=== PATIENT | male | born 1930 | race Caucasian/White ===

== ENCOUNTER 2019-04-15 13:29 | Emergency (ER) | payer OTHER ==
[~2019-04-15] VITALS: Ht 172.7 cm; Wt 68.2 kg
[~2019-04-15 13:29] MED LIST: AMOX1TAB64 PO; APIX2.5T PO; DILT180C72 PO; FAMO40TA4 PO; INSU100V8 SQ; METF500T17 PO; MIRT-34 PO; ROSU10TA2 PO; SITA25TA PO
[2019-04-15 14:23] LABS: BASOPHILS # (AUTO) 0.03 x10^3/uL (0-0.1); BASOPHILS % (AUTO) 0 % (0-1); EOSINOPHILS # (AUTO) 0.19 x10^3/uL (0-0.4); EOSINOPHILS % (AUTO) 2 % (1-7); LYMPHOCYTES # (AUTO) 1.32 x10^3/uL (1-3.4); LYMPHOCYTES % (AUTO) 15 % (22-44); MD NO; MEAN CORPUSCULAR VOLUME 93.6 fL (81-97); MEAN PLATELET VOLUME 7.1 fL (7.4-10.4); MONOCYTES # (AUTO) 0.99 x10^3/uL (0.2-0.8); MONOCYTES % (AUTO) 11 % (2-9); NEUTROPHILS # (AUTO) 6.39 x10^3/uL (1.8-6.8); NEUTROPHILS % (AUTO) 72 % (42-75); PLATELET COUNT 310 x10^3/uL (130-400); RED BLOOD COUNT 4.15 x10^6/uL (4.38-5.82); RED CELL DISTRIBUTION WIDTH 14.7 % (9.4-14.8)
[2019-04-15 14:31] LABS: ALANINE AMINOTRANSFERASE 32 U/L (12-78); ALBUMIN 3.3 g/dL (3.4-5.0); ANION GAP 5 mmol/L (5-15); CALCIUM 8.6 mg/dL (8.5-10.1); CHLORIDE 99 mmol/L (98-107); CREATININE 1.04 mg/dL (0.7-1.3)
[2019-04-15 14:33] LABS: ALKALINE PHOSPHATASE 77 U/L (45-117); BILIRUBIN,TOTAL 0.5 mg/dL (0.2-1.0); TOTAL PROTEIN 6.6 g/dL (6.4-8.2)
[2019-04-15 14:58] LABS: MICROSCOPIC INDICATED
[2019-04-15 15:02] LABS: CULTURE INDICATED? YES
--- NOTE | 2019-04-15 16:13 | NUR ---
LATE NOTE ENTRY DUE TO PT CARE. Second enema provided to pt with relief of constipation with large amount of hard stools. Pt states relief. NADN. No other needs expressed. Pt continues to rest on gurney connected to NIBP cuff and continous pulse ox monitor. Bedrails up x 2, call light within reach.
--- NOTE | 2019-04-15 16:47 | NUR ---
Called [facility] of the [facility] at [phone] to provide RN to RN report for pt to transfer back. RN unavailable at time of call and ED phone number was left in message for a call back.
[2019-04-15 17:05] VITALS: BP 134/87
--- NOTE | 2019-04-15 17:06 | NUR ---
DC pending medical transport home. Pt dressed in personal clothing sitting on gurney. Call light within reach. Bedrails up x 2. NADN. No needs expressed.
--- NOTE | 2019-04-15 17:32 | NUR ---
THROUGHPUT: ATTEMPTED TO REACH [facility], THEY ARE CLOSED. [facility] TO TRANSPORT PATIENT BACK TO [facility] AT 1815.
--- NOTE | 2019-04-15 18:08 | NUR ---
Provided RN to RN report to FLORES Lynne at [facility]. All questions answered. Pt ready to transport from ED to home by [facility] at 1815.
--- NOTE | 2019-04-15 18:46 | NUR ---
Pt transported by [facility] back home. Pt d/c with all personal belongings, prescription, and d/c paperwork. NADN. No needs expressed.
== END 2019-04-15 18:48 | disposition home or self-care (01) ==
LOC: ED 17:58
DX: K56.41 Fecal impaction (principal); N30.01 Acute cystitis with hematuria; Z86.73 Personal history of transient ischemic attack (TIA), and cerebral infarction without residual deficits; E11.9 Type 2 diabetes mellitus without complications; I25.10 Atherosclerotic heart disease of native coronary artery without angina pectoris
CPT/HCPCS: 36415; 80053; 81001; 83690; 85025; 87077; 87086; 87186; 99284

== ENCOUNTER 2019-08-22 03:30 | Inpatient (IN) | payer OTHER ==
[~2019-08-22] VITALS: Ht 172.7 cm; Wt 57.0 kg
[2019-08-22] MEDS ORDERED: MORPHINE SULFATE 4 MG/ML, 1ML ONE (03:43)
[2019-08-22] MEDS ORDERED: ONDANSETRON 2MG/ML, 2ML ONE (03:43)
[2019-08-22] MEDS ORDERED: CEFTRIAXONE PMX 1GM/50ML 50 ML ONE (04:37)
--- NOTE | 2019-08-22 04:59 | NUR ---
See paper chart.
[2019-08-22] MEDS ORDERED: SODIUM CHLORIDE 0.9% 1,000 ML IV ONE (05:41)
[2019-08-22] MEDS ORDERED: MORPHINE SULFATE 4 MG/ML, 1ML IVPush PRN (06:00)
[2019-08-22] MEDS ORDERED: ONDANSETRON 2MG/ML, 2ML IVPush ONE (06:00)
[2019-08-22 06:09] LABS: ANION GAP 7 mmol/L (5-15); BILIRUBIN,TOTAL 0.8 mg/dL (0.2-1.0); CALCIUM 8.6 mg/dL (8.5-10.1); CHLORIDE 96 mmol/L (98-107); CREATININE 0.89 mg/dL (0.7-1.3)
[2019-08-22 06:10] LABS: ALANINE AMINOTRANSFERASE 24 U/L (12-78); ALBUMIN 3.7 g/dL (3.4-5.0); ALKALINE PHOSPHATASE 93 U/L (45-117); TOTAL PROTEIN 7.6 g/dL (6.4-8.2); TROPONIN I < 0.015 ng/mL (0.000-0.045)
--- NOTE | 2019-08-22 06:20 | NUR ---
ua collected and sent to lab
[2019-08-22 06:21] LABS: CULTURE INDICATED? YES; MICROSCOPIC INDICATED
[2019-08-22] MEDS: CEFTRIAXONE PMX 1GM/50ML 50 ML IV SCH (06:29)
[2019-08-22 06:37] LABS: BASOPHILS # (AUTO) 0.04 x10^3/uL (0-0.1); BASOPHILS % (AUTO) 0 % (0-1); EOSINOPHILS # (AUTO) 0.15 x10^3/uL (0-0.4); EOSINOPHILS % (AUTO) 1 % (1-7); LYMPHOCYTES # (AUTO) 1.07 x10^3/uL (1-3.4); LYMPHOCYTES % (AUTO) 10 % (22-44); MD NO; MEAN CORPUSCULAR HEMOGLOBIN 29.8 pg (27.5-34.5); MEAN CORPUSCULAR HGB CONC 32.4 g/dL (33.2-36.2); MEAN PLATELET VOLUME 7.2 fL (7.4-10.4); MONOCYTES # (AUTO) 1.03 x10^3/uL (0.2-0.8); MONOCYTES % (AUTO) 10 % (2-9); NEUTROPHILS # (AUTO) 8.22 x10^3/uL (1.8-6.8); NEUTROPHILS % (AUTO) 78 % (42-75); PLATELET COUNT 264 x10^3/uL (130-400); RED BLOOD COUNT 4.92 x10^6/uL (4.38-5.82); RED CELL DISTRIBUTION WIDTH 15.6 % (9.4-14.8)
[2019-08-22] MEDS ORDERED: NS + 20MEQ KCL 1,000 ML IV SCH ×2 (06:37→20:00)
[2019-08-22] MEDS ORDERED: morphine SULFATE 10 MG/ML, 1ML IVPush PRN (07:00)
[2019-08-22] MEDS ORDERED: DEXTROSE 50%, 50ML SYRINGE IVPush PRN (07:00)
[2019-08-22] MEDS ORDERED: BACLOFEN 10 MG TABLET PO PRN (07:00)
[2019-08-22] MEDS ORDERED: PROMETHAZINE 25 MG/ML, 1ML IM PRN (07:00)
[2019-08-22] MEDS ORDERED: hydrALAzine 20 MG/ML, 1ML IVPush PRN (07:00)
[2019-08-22] MEDS ORDERED: DEXTROSE 4 GM TAB.CHEW PO PRN (07:00)
[2019-08-22] MEDS ORDERED: ONDANSETRON ODT 4 MG PO PRN (07:00)
[2019-08-22] MEDS ORDERED: ACETAMINOPHEN 325 MG TABLET PO PRN (07:00)
[2019-08-22] MEDS ORDERED: GLUCAGON 1 MG IM PRN (07:00)
[2019-08-22] MEDS ORDERED: ONDANSETRON 2MG/ML, 2ML IVPush PRN (07:00)
[2019-08-22 07:45] VITALS: BP 186/90
[2019-08-22 08:22] LABS: ALANINE AMINOTRANSFERASE 24 U/L (12-78); ALBUMIN 3.7 g/dL (3.4-5.0); ALKALINE PHOSPHATASE 93 U/L (45-117); BILIRUBIN, DIRECT 0.2 mg/dL (0.1-0.2); BILIRUBIN,INDIRECT 0.6 mg/dL (0.0-2.0); BILIRUBIN,TOTAL 0.8 mg/dL (0.2-1.0); TOTAL PROTEIN 7.6 g/dL (6.4-8.2); TROPONIN I < 0.015 ng/mL (0.000-0.045)
[2019-08-22] MEDS: SODIUM CHLORIDE FLUSH 10ML SYR IVF SCH ×2 (09:00→21:00)
[2019-08-22] MEDS ORDERED: APIXABAN 2.5 MG TABLET PO SCH (09:00)
[2019-08-22] MEDS: DILTIAZEM CD 180 MG CAP.ER.24H PO SCH (10:38)
[2019-08-22] MEDS: MIRTAZAPINE 15 MG TABLET PO SCH (10:38)
[2019-08-22] MEDS: FAMOTIDINE 40 MG TABLET PO SCH (10:38)
[2019-08-22] MEDS: INSULIN HUMULIN 70/30, 3ML PEN SQ-INSULIN SCH ×2 (10:43→16:30)
[2019-08-22] MEDS: INSULIN LISPRO 100 UNITS/ML, PEN SQ-INSULIN SCH ×4 (10:43→21:00)
[2019-08-22 10:50] VITALS: BP 177/98
[2019-08-22 12:24] VITALS: BP 161/80
[2019-08-22 13:39] LABS: ANION GAP 7 mmol/L (5-15); CALCIUM 8.8 mg/dL (8.5-10.1); CHLORIDE 95 mmol/L (98-107); CREATININE 0.97 mg/dL (0.7-1.3)
[2019-08-22 13:44] LABS: CHLORIDE,URINE RANDOM 88 mmol/L; POTASSIUM,URINE RANDOM 36 mmol/L; SODIUM,URINE RANDOM 79 mmol/L
[2019-08-22 15:24] VITALS: BP 147/75
[2019-08-22 19:47] VITALS: BP 110/61
[2019-08-22] MEDS: ATORVASTATIN 40 MG TABLET PO SCH (21:47)
[2019-08-23 00:34] VITALS: BP 117/67
[2019-08-23 05:42] LABS: MEAN CORPUSCULAR HEMOGLOBIN 29.8 pg (27.5-34.5); MEAN CORPUSCULAR HGB CONC 32.3 g/dL (33.2-36.2); MEAN CORPUSCULAR VOLUME 92.2 fL (81-97); MEAN PLATELET VOLUME 7.6 fL (7.4-10.4); PLATELET COUNT 243 x10^3/uL (130-400); RED BLOOD COUNT 4.42 x10^6/uL (4.38-5.82); RED CELL DISTRIBUTION WIDTH 16.3 % (9.4-14.8)
[2019-08-23 05:48] LABS: CALCIUM 8.7 mg/dL (8.5-10.1); CHLORIDE 99 mmol/L (98-107)
[2019-08-23] MEDS: CEFTRIAXONE PMX 1GM/50ML 50 ML IV SCH (06:01)
[2019-08-23 06:02] LABS: ANION GAP 8 mmol/L (5-15); CREATININE 1.44 mg/dL (0.7-1.3)
[2019-08-23 06:27] LABS: BASOPHILS # (AUTO) 0.01 x10^3/uL (0-0.1); BASOPHILS % (AUTO) 0 % (0-1); EOSINOPHILS % (AUTO) 0 % (1-7); LYMPHOCYTES # (AUTO) 1.88 x10^3/uL (1-3.4); LYMPHOCYTES % (AUTO) 13 % (22-44); MD SCAN; MONOCYTES % (AUTO) 14 % (2-9); NEUTROPHILS # (AUTO) 10.66 x10^3/uL (1.8-6.8); NEUTROPHILS % (AUTO) 73 % (42-75)
[2019-08-23] MEDS ORDERED: NS + 20MEQ KCL 1,000 ML IV SCH ×2 (06:37→20:00)
[2019-08-23] MEDS: INSULIN LISPRO 100 UNITS/ML, PEN SQ-INSULIN SCH ×4 (07:00→20:28)
[2019-08-23 07:14] VITALS: BP 134/60
[2019-08-23] MEDS: SODIUM CHLORIDE FLUSH 10ML SYR IVF SCH ×2 (09:00→20:34)
[2019-08-23] MEDS: DILTIAZEM CD 180 MG CAP.ER.24H PO SCH (09:07)
[2019-08-23] MEDS: INSULIN HUMULIN 70/30, 3ML PEN SQ-INSULIN SCH ×2 (09:07→16:37)
[2019-08-23] MEDS: MIRTAZAPINE 15 MG TABLET PO SCH (09:07)
[2019-08-23] MEDS: FAMOTIDINE 40 MG TABLET PO SCH (09:07)
[2019-08-23 14:00] VITALS: BP 138/72
[2019-08-23 18:48] LABS: BASOPHILS # (AUTO) 0.03 x10^3/uL (0-0.1); BASOPHILS % (AUTO) 0 % (0-1); EOSINOPHILS # (AUTO) 0.15 x10^3/uL (0-0.4); EOSINOPHILS % (AUTO) 1 % (1-7); LYMPHOCYTES % (AUTO) 14 % (22-44); MD SCAN; MEAN CORPUSCULAR HEMOGLOBIN 29.9 pg (27.5-34.5); MEAN CORPUSCULAR VOLUME 90.5 fL (81-97); MEAN PLATELET VOLUME 7.9 fL (7.4-10.4); MONOCYTES % (AUTO) 14 % (2-9); NEUTROPHILS # (AUTO) 7.39 x10^3/uL (1.8-6.8); NEUTROPHILS % (AUTO) 70 % (42-75); PLATELET COUNT 252 x10^3/uL (130-400); RED CELL DISTRIBUTION WIDTH 15.6 % (9.4-14.8)
[2019-08-23 20:15] VITALS: BP 159/63
[2019-08-23] MEDS: ATORVASTATIN 40 MG TABLET PO SCH (20:20)
[2019-08-24 01:03] VITALS: BP 166/77
[2019-08-24 05:57] LABS: BASOPHILS # (AUTO) 0.04 x10^3/uL (0-0.1); BASOPHILS % (AUTO) 0 % (0-1); EOSINOPHILS # (AUTO) 0.21 x10^3/uL (0-0.4); EOSINOPHILS % (AUTO) 2 % (1-7); LYMPHOCYTES % (AUTO) 14 % (22-44); MD NO; MEAN CORPUSCULAR HEMOGLOBIN 29.3 pg (27.5-34.5); MEAN CORPUSCULAR HGB CONC 32.2 g/dL (33.2-36.2); MEAN PLATELET VOLUME 7.6 fL (7.4-10.4); MONOCYTES # (AUTO) 1.32 x10^3/uL (0.2-0.8); MONOCYTES % (AUTO) 14 % (2-9); NEUTROPHILS # (AUTO) 6.48 x10^3/uL (1.8-6.8); NEUTROPHILS % (AUTO) 69 % (42-75); PLATELET COUNT 247 x10^3/uL (130-400); RED BLOOD COUNT 4.38 x10^6/uL (4.38-5.82); RED CELL DISTRIBUTION WIDTH 15.9 % (9.4-14.8)
[2019-08-24 06:02] LABS: ANION GAP 5 mmol/L (5-15); CALCIUM 8.7 mg/dL (8.5-10.1); CHLORIDE 103 mmol/L (98-107)
[2019-08-24 06:05] LABS: ALANINE AMINOTRANSFERASE 16 U/L (12-78); ALKALINE PHOSPHATASE 72 U/L (45-117); BILIRUBIN,TOTAL 0.6 mg/dL (0.2-1.0); TOTAL PROTEIN 6.8 g/dL (6.4-8.2)
[2019-08-24] MEDS: CEFTRIAXONE PMX 1GM/50ML 50 ML IV SCH (06:06)
[2019-08-24 06:45] VITALS: BP 180/83
[2019-08-24] MEDS: INSULIN LISPRO 100 UNITS/ML, PEN SQ-INSULIN SCH ×3 (07:00→21:00)
[2019-08-24 07:58] VITALS: BP 171/67
[2019-08-24] MEDS: SODIUM CHLORIDE FLUSH 10ML SYR IVF SCH ×2 (07:59→20:05)
[2019-08-24] MEDS: INSULIN HUMULIN 70/30, 3ML PEN SQ-INSULIN SCH ×2 (07:59→16:51)
[2019-08-24] MEDS: FAMOTIDINE 40 MG TABLET PO SCH (08:00)
[2019-08-24] MEDS: DILTIAZEM CD 180 MG CAP.ER.24H PO SCH (08:00)
[2019-08-24] MEDS: MIRTAZAPINE 15 MG TABLET PO SCH (08:00)
[2019-08-24] MEDS: LISINOPRIL 20 MG TABLET PO SCH ×2 (08:00→20:05)
[2019-08-24 13:41] VITALS: BP 146/67
[2019-08-24 19:50] VITALS: BP 143/76
[2019-08-24] MEDS: ATORVASTATIN 40 MG TABLET PO SCH (20:05)
[2019-08-25 01:50] VITALS: BP 146/80
[2019-08-25] MEDS: CEFTRIAXONE PMX 1GM/50ML 50 ML IV SCH (06:26)
[2019-08-25 06:42] LABS: BASOPHILS # (AUTO) 0.04 x10^3/uL (0-0.1); BASOPHILS % (AUTO) 1 % (0-1); EOSINOPHILS # (AUTO) 0.28 x10^3/uL (0-0.4); EOSINOPHILS % (AUTO) 3 % (1-7); LYMPHOCYTES # (AUTO) 1.77 x10^3/uL (1-3.4); LYMPHOCYTES % (AUTO) 19 % (22-44); MD NO; MEAN CORPUSCULAR HEMOGLOBIN 29.7 pg (27.5-34.5); MEAN CORPUSCULAR HGB CONC 32.4 g/dL (33.2-36.2); MEAN CORPUSCULAR VOLUME 91.5 fL (81-97); MEAN PLATELET VOLUME 7.6 fL (7.4-10.4); MONOCYTES # (AUTO) 1.29 x10^3/uL (0.2-0.8); MONOCYTES % (AUTO) 14 % (2-9); NEUTROPHILS # (AUTO) 5.95 x10^3/uL (1.8-6.8); NEUTROPHILS % (AUTO) 64 % (42-75); PLATELET COUNT 293 x10^3/uL (130-400); RED BLOOD COUNT 4.65 x10^6/uL (4.38-5.82); RED CELL DISTRIBUTION WIDTH 15.6 % (9.4-14.8)
[2019-08-25] MEDS: INSULIN LISPRO 100 UNITS/ML, PEN SQ-INSULIN SCH ×4 (07:00→21:00)
[2019-08-25] MEDS: INSULIN HUMULIN 70/30, 3ML PEN SQ-INSULIN SCH ×2 (08:03→17:02)
[2019-08-25] MEDS: LISINOPRIL 20 MG TABLET PO SCH ×2 (08:03→20:29)
[2019-08-25] MEDS: SODIUM CHLORIDE FLUSH 10ML SYR IVF SCH ×2 (08:03→20:28)
[2019-08-25] MEDS: AMOXICILLIN/CLAV 875-125MG TABLET PO SCH ×2 (08:03→20:29)
[2019-08-25] MEDS: MIRTAZAPINE 15 MG TABLET PO SCH (08:04)
[2019-08-25] MEDS: FAMOTIDINE 40 MG TABLET PO SCH (08:04)
[2019-08-25] MEDS: DILTIAZEM CD 180 MG CAP.ER.24H PO SCH (08:04)
[2019-08-25 15:14] VITALS: BP 123/71
[2019-08-25] MEDS: ATORVASTATIN 40 MG TABLET PO SCH (20:29)
[2019-08-25 20:37] VITALS: BP 133/83
[2019-08-26 02:00] VITALS: BP 140/80
[2019-08-26 07:07] VITALS: BP 166/73
[2019-08-26] MEDS: INSULIN LISPRO 100 UNITS/ML, PEN SQ-INSULIN SCH ×4 (08:25→21:00)
[2019-08-26] MEDS: INSULIN HUMULIN 70/30, 3ML PEN SQ-INSULIN SCH ×2 (08:26→17:04)
[2019-08-26] MEDS: AMOXICILLIN/CLAV 875-125MG TABLET PO SCH ×2 (08:26→22:34)
[2019-08-26] MEDS: LISINOPRIL 20 MG TABLET PO SCH ×2 (08:26→08:30)
[2019-08-26] MEDS: FAMOTIDINE 40 MG TABLET PO SCH (08:26)
[2019-08-26] MEDS: DILTIAZEM CD 180 MG CAP.ER.24H PO SCH (08:26)
[2019-08-26] MEDS: AMLODIPINE 5 MG TABLET PO SCH ×2 (08:26→22:34)
[2019-08-26] MEDS: MIRTAZAPINE 15 MG TABLET PO SCH (08:26)
[2019-08-26] MEDS: SODIUM CHLORIDE FLUSH 10ML SYR IVF SCH ×2 (08:27→22:34)
[2019-08-26 13:58] VITALS: BP 137/69
[2019-08-26 21:01] VITALS: BP 133/72
[2019-08-26] MEDS: ATORVASTATIN 40 MG TABLET PO SCH (22:34)
[2019-08-27 00:40] VITALS: BP 93/52
[2019-08-27 05:57] LABS: BASOPHILS # (AUTO) 0.07 x10^3/uL (0-0.1); BASOPHILS % (AUTO) 1 % (0-1); EOSINOPHILS # (AUTO) 1.33 x10^3/uL (0-0.4); EOSINOPHILS % (AUTO) 14 % (1-7); LYMPHOCYTES # (AUTO) 2.08 x10^3/uL (1-3.4); LYMPHOCYTES % (AUTO) 23 % (22-44); MD NO; MEAN CORPUSCULAR HGB CONC 32.9 g/dL (33.2-36.2); MEAN CORPUSCULAR VOLUME 91.3 fL (81-97); MEAN PLATELET VOLUME 7.6 fL (7.4-10.4); MONOCYTES # (AUTO) 1.33 x10^3/uL (0.2-0.8); MONOCYTES % (AUTO) 14 % (2-9); NEUTROPHILS # (AUTO) 4.43 x10^3/uL (1.8-6.8); NEUTROPHILS % (AUTO) 48 % (42-75); PLATELET COUNT 312 x10^3/uL (130-400); RED BLOOD COUNT 4.61 x10^6/uL (4.38-5.82); RED CELL DISTRIBUTION WIDTH 15.7 % (9.4-14.8)
[2019-08-27 06:05] LABS: CHLORIDE 105 mmol/L (98-107)
[2019-08-27 06:14] LABS: ALANINE AMINOTRANSFERASE 18 U/L (12-78); ALBUMIN 3.1 g/dL (3.4-5.0); ALKALINE PHOSPHATASE 77 U/L (45-117); ANION GAP 6 mmol/L (5-15); BILIRUBIN,TOTAL 0.8 mg/dL (0.2-1.0); TOTAL PROTEIN 6.8 g/dL (6.4-8.2)
[2019-08-27] MEDS: INSULIN LISPRO 100 UNITS/ML, PEN SQ-INSULIN SCH (07:12)
[2019-08-27] MEDS: FAMOTIDINE 40 MG TABLET PO SCH (07:20)
[2019-08-27] MEDS: LISINOPRIL 20 MG TABLET PO SCH (07:20)
[2019-08-27] MEDS: MIRTAZAPINE 15 MG TABLET PO SCH (07:20)
[2019-08-27] MEDS: DILTIAZEM CD 180 MG CAP.ER.24H PO SCH (07:20)
[2019-08-27] MEDS: INSULIN HUMULIN 70/30, 3ML PEN SQ-INSULIN SCH (07:20)
[2019-08-27] MEDS: AMLODIPINE 5 MG TABLET PO SCH (07:20)
[2019-08-27] MEDS: AMOXICILLIN/CLAV 875-125MG TABLET PO SCH (07:20)
[2019-08-27] MEDS: SODIUM CHLORIDE FLUSH 10ML SYR IVF SCH (07:21)
[2019-08-27 09:16] VITALS: BP 101/65
[2019-08-27] MEDS ORDERED: GABA-827 PO (13:07)
[2019-08-27] MEDS ORDERED: METF500T17 PO (13:07)
[2019-08-27] MEDS ORDERED: HUM100IN4 SQ-INSULIN ×2 (13:07)
[2019-08-27] MEDS ORDERED: PANT40TA3 PO (13:07)
[2019-08-27] MEDS ORDERED: LISI-170 PO (13:07)
[2019-08-27] MEDS ORDERED: SIMV10TA18 PO (13:07)
[2019-08-27] MEDS ORDERED: AMLO-150 PO (13:07)
== END 2019-08-27 15:35 | DRG 698 ==
LOC: ED 04:23 → SUATTDRO 06:23 → EDIP 06:28 → OBSVTOIN 06:28 → INTOOBSV 06:28 → 3N 07:13
PROVIDERS: ADMIT Hospitalist; ATTEND Family Medicine
PROC: 0T9B70Z Drainage of Bladder with Drainage Device, Via Natural or Artificial Opening (ICD-10-PCS; principal; 2019-08-22)
DX: T83.518A Infection and inflammatory reaction due to other urinary catheter, initial encounter (principal); N17.0 Acute kidney failure with tubular necrosis; E87.1 Hypo-osmolality and hyponatremia; D68.69 Other thrombophilia; I25.10 Atherosclerotic heart disease of native coronary artery without angina pectoris; B96.4 Proteus (mirabilis) (morganii) as the cause of diseases classified elsewhere; I48.91 Unspecified atrial fibrillation; Y92.89 Other specified places as the place of occurrence of the external cause; Y84.6 Urinary catheterization as the cause of abnormal reaction of the patient, or of later complication, without mention of misadventure at the time of the procedure; E11.65 Type 2 diabetes mellitus with hyperglycemia; I10 Essential (primary) hypertension; I35.8 Other nonrheumatic aortic valve disorders; N40.0 Benign prostatic hyperplasia without lower urinary tract symptoms; R09.02 Hypoxemia; Z66 Do not resuscitate; Z86.73 Personal history of transient ischemic attack (TIA), and cerebral infarction without residual deficits; Z87.891 Personal history of nicotine dependence; Z89.512 Acquired absence of left leg below knee; Z89.611 Acquired absence of right leg above knee; Z95.5 Presence of coronary angioplasty implant and graft
CPT/HCPCS: 36415; 71045; 74018; 76700; 80048; 80053; 80076; 81001; 82436; 82947; 82962; 83036; 83880; 84133; 84300; 84443; 84484; 85014; 85018; 85025; 87077; 87086; 87186; 93005; 93306; G0378; J0696; J3480; J0360; J1815